=== PATIENT | male | born 1960 | race Two or more races ===

== ENCOUNTER → 2020-12-19 | Outpatient (CLI) | payer MEDICARE, MEDICAID ==
[~2020-12-19] MED LIST: ASPI-1406; HYDR25TA; IBUP-466; IOHEXOL-300 100 ML BOTTLE ONE
== END | disposition home or self-care (01) ==
LOC: NM 07:20
PROVIDERS: ATTEND Urology
DX: S32.048A Other fracture of fourth lumbar vertebra, initial encounter for closed fracture (principal); C61 Malignant neoplasm of prostate; X58.XXXA Exposure to other specified factors, initial encounter; Y93.89 Activity, other specified; Y92.89 Other specified places as the place of occurrence of the external cause; Y99.8 Other external cause status
CPT/HCPCS: 71046; 72194; 78306; A9503; Q9967